=== PATIENT | female | born 1960 ===

== ENCOUNTER 2017-09-06 13:22 | Emergency (ER) | payer MEDICARE, MEDICAID ==
[2017-09-06 13:25] VITALS: BP 117/81; PULSE 86; RESP 16; TEMP 98; O2SAT 100
[2017-09-06 13:26] VITALS: BMI 22.1
--- NOTE | 2017-09-06 14:45 | ED PDOC ---
HPI: Abdomen Time Seen by Provider: 09/06/17 13:56 Chief Complaint (Nursing): Dizziness/Lightheaded Chief Complaint (Provider): Dizziness, lightheadedness History Per: Patient History/Exam Limitations: no limitations Onset/Duration Of Symptoms: Days (8) Outside of [place] travel?: No Current Symptoms Are (Timing): Still Present Associated Symptoms: Nausea, Diarrhea Last Bowel Movement: Today Additional Complaint(s): 56 yo ,f, PMhx/o Disc herniation with multiples nerve blocks procedure presents to ED c/o lightheadedness started 8 days ago after she had lumbar nerve block procedure "epidural " with anesthesia. She reports lightheadedness, intermittent , generalized weakness, sweating. Reports nausea since yesterday with stomach discomfort "butterfly sensation" and liquid non- bloddy diarrhea 5 episodes started today 4 am. She denies fever, headache,confusion, vertigo, chest pain , SOB, vomiting, dysuria. Patient reports that she does not like water and usually drink low amount of water. reports low urine output 1-2/day yesterday. Patient reports that 1 year ago she had similar symptoms after anesthesia for nerve block as treatment for her disc herniation. Past Medical History Vital Signs: Last Vital Signs Temp 98.0 F 09/06/17 13:25 Pulse 86 09/06/17 13:25 Resp 16 09/06/17 13:25 BP 117/81 09/06/17 13:25 Pulse Ox 100 09/15/17 12:30 - Family History Family History: States: Unknown Family Hx - Allergies Allergies/Adverse Reactions: Allergies Allergy/AdvReac Type Severity Reaction Status Date / Time No Known Allergies Allergy Verified 09/06/17 13:24 Review of Systems Gastrointestinal: Positive for: Nausea, Diarrhea Neurological: Positive for: Weakness, Dizziness Physical Exam - Physical Exam Appears: Positive for: Non-toxic, No Acute Distress Head Exam: Positive for: ATRAUMATIC, NORMOCEPHALIC Skin: Positive for: Normal Color Eye Exam: Positive for: Normal appearance, EOMI. Negative for: Nystagmus Neck: Positive for: Normal Cardiovascular/Chest: Positive for: Regular Rate, Rhythm. Negative for: Murmur Respiratory: Positive for: Normal Breath Sounds. Negative for: Crackles, Rales , Rhonchi Gastrointestinal/Abdominal: Positive for: Bowel Sounds, Soft, Other (dry tongue) . Negative for: Tenderness, Distended, Rebound Extremity: Negative for: Tenderness, Pedal Edema Neurologic/Psych: Positive for: Alert, Oriented - Laboratory Results Result Diagrams: 09/06/17 14:58 09/06/17 14:58 - ECG O2 Sat by Pulse Oximetry: 100 Medical Decision Making Medical Decision Makin:20 PM Patient evaluated for lightheadedness, weakness, nausea after epidural injection 9 days ago, and new onset diarrhea today Initial impression Viral Gastroenteritis Dehydration Differential diagnosis Bacterial Gastroentiritis, UTI,Adrenal crisis, Tima disease Plan CBC, CMP, Mg,Ph, troponin EKG Meds: IF fluids NS 1L Zofran 4m IV 15:40 CBC normal, CMP BUN/CR 21/0.6 Phosphoros: 2.1 troponin x 1 neg. EKG: old WA. Q wave V1-V3 Kphosp 250 mg PO once Disposition - Clinical Impression Clinical Impression: Dizziness, Dehydration - Disposition Referrals: [facility] [Outside] [facility] [Outside] Disposition Time: 17:15 Condition: IMPROVED Additional Instructions: follow up with your primary doctor in 1-2 days return to the ED with any worsening or concerning symptoms Instructions: Dehydration, Adult (DC) Forms: [employer] ([place])
[2017-09-06 15:02] LABS: BASO % 0.2 % (0.0-2.0); EOS # 0.1 K/uL (0.0-0.7); EOS % 1.3 % (0.0-4.0); HEMOGLOBIN 12.3 g/dL (12.0-16.0); LYMPH # 1.8 K/uL (1.0-4.3); LYMPH % 19.7 % (20.0-40.0); MEAN CORPUSCULAR HEMOGLOBIN 29.7 pg (27.0-31.0); MEAN CORPUSCULAR HGB CONC 33.3 g/dL (33.0-37.0); MEAN PLATELET VOLUME 7.7 fl (7.2-11.7); MONO # 0.8 K/uL (0.0-0.8); MONO % 8.9 % (0.0-10.0); NEUT # 6.3 K/uL (1.8-7.0); NEUT % 69.9 % (50.0-75.0); NRBC % 0.1 % (0.0-0.0); RBC 4.16 Mil/uL (3.80-5.20); RED CELL DISTRIBUTION WIDTH 15.4 % (11.5-14.5)
[2017-09-06 15:16] LABS: ALB/GLOB RATIO 1.2 (1.0-2.1); ALT/SGPT 32 U/L (9-52); AST/SGOT 28 U/L (14-36); BLOOD UREA NITROGEN 21 mg/dl (7-17); CALCIUM 8.2 mg/dL (8.4-10.2); GFR AFRICAN-AMERICAN > 60; GFR NON-AFRICAN AMERICAN > 60
[2017-09-06] MEDS: Sodium Chloride 0.9% 1,000 ML IV SCH ×5 (15:35→18:44)
[2017-09-06 18:41] LABS: SQUAMOUS EPITHIAL 1 /hpf (0-5); URINE BACTERIA RARE (<OCC); URINE BILIRUBIN NEGATIVE (NEGATIVE); URINE BLOOD SMALL (NEGATIVE); URINE CLARITY SLIGHTY-CLOUDY (Clear); URINE COLOR YELLOW (YELLOW); URINE GLUCOSE (UA) NEG (Normal); URINE LEUKOCYTE ESTERASE TRACE Leu/uL (Negative); URINE PROTEIN NEGATIVE (NEGATIVE); URINE UROBILINOGEN 0.2-1.0 mg/dL (0.2-1.0)
--- NOTE | 2017-09-07 22:22 | CARD ---
APPROVED REPORT EKG Measurement Heart [id number] <Conclusion> Normal sinus rhythm Septal infarct, age undetermined Abnormal ECG
== END 2017-09-06 19:30 | disposition home or self-care (01) ==
LOC: H.ER 13:22
DX: R42 Dizziness and giddiness (principal); E86.0 Dehydration
CPT/HCPCS: 80053; 81003; 83735; 84100; 84484; 85025; 93005; 96361; 96374; 99282; J2405; J7040